=== PATIENT | female | born 1950 | race Caucasian/White ===

== ENCOUNTER 2021-04-30 07:29 | Day surgery (SDC) | payer MEDICARE, OTHER ==
[2021-04-30] MEDS ORDERED: LACTATED RINGERS 1,000 ML IV ONE ×2 (07:32→09:18)
[2021-04-30] MEDS ORDERED: MIDAZOLAM 2 MG/2 ML VIAL ONE ×3 (08:42→09:02)
[2021-04-30] MEDS ORDERED: fentaNYL 250 MCG/5 ML VIAL ONE (08:42)
[2021-04-30] MEDS ORDERED: ONDANSETRON 4 MG/2 ML VIAL ONE (08:43)
[2021-04-30 09:30] VITALS: BP 142/70
== END 2021-04-30 07:30 | disposition home or self-care (01) ==
LOC: SDS 07:29
PROVIDERS: ATTEND Surgery
DX: Z12.11 Encounter for screening for malignant neoplasm of colon (principal); K64.4 Residual hemorrhoidal skin tags; K64.8 Other hemorrhoids; K57.30 Diverticulosis of large intestine without perforation or abscess without bleeding; Z86.010 Personal history of colon polyps; F41.9 Anxiety disorder, unspecified; E66.9 Obesity, unspecified; Z68.37 Body mass index [BMI] 37.0-37.9, adult
CPT/HCPCS: G0105; J3010; J7120